=== PATIENT | female | born 1985 | race Caucasian/White ===

== ENCOUNTER 2016-06-09 00:31 | Emergency (ER) | payer MEDICAID ==
[~2016-06-09] VITALS: Ht 160 cm; Wt 52.2 kg
[2016-06-09] MEDS ORDERED: ONDANSETRON ODT 4 MG TAB.RAPDIS SL ONE (01:45)
[2016-06-09] MEDS ORDERED: IBUPROFEN 400 MG TABLET PO ONE (01:45)
[2016-06-09] MEDS ORDERED: HYDROMORPHONE 1 MG/1 ML DISP.SYRIN IM ONE (01:45)
[2016-06-09] MEDS ORDERED: ONDANSETRON ODT 4 MG TAB.RAPDIS ONE (02:07)
[2016-06-09] MEDS ORDERED: HYDROMORPHONE 1 MG/1 ML DISP.SYRIN ONE (02:07)
[2016-06-09] MEDS ORDERED: IBUPROFEN 400 MG TABLET ONE (02:07)
--- NOTE | 2016-06-09 02:55 | NUR ---
Patient discharged to home in stable conditon [facility]. Written and verbal after care instructions given. Patient verbalizes understanding of instructions. WALKED OUT OF ER WITH KERRY HADDAD
[2016-06-09 02:56] VITALS: BP 100/62
== END 2016-06-09 02:56 | disposition home or self-care (01) ==
LOC: ER 00:37
DX: R51 Headache (principal)
CPT/HCPCS: A4663; J1170; Q0162